=== PATIENT | female | born 1970 | race Caucasian/White ===

== ENCOUNTER 2017-10-31 10:40 | Outpatient (CLI) | payer OTHER | END 2017-10-31 10:41 | disposition home or self-care (01) | LOC: BICCT 10:40 | PROVIDERS: ATTEND Specialist | DX: G45.9 Transient cerebral ischemic attack, unspecified (principal) | CPT/HCPCS: 70450 ==

== ENCOUNTER 2020-02-20 06:35 | Emergency (ER) | payer OTHER | END 2020-02-20 07:11 | disposition left against medical advice (07) | LOC: ERS 06:35 | DX: Z53.21 Procedure and treatment not carried out due to patient leaving prior to being seen by health care provider (principal) ==

== ENCOUNTER 2020-02-23 22:24 | Emergency (ER) | payer BC, OTHER ==
--- NOTE | 2020-02-23 23:15 | RAD ---
XR Chest 1 View Portable HISTORY: Chest pain COMPARISON: 03/17/2014 FINDINGS: The heart size is normal. The lungs are well expanded without focal areas of consolidation, pneumothorax or pleural effusions. IMPRESSION: No radiographic evidence of acute cardiopulmonary process.
[2020-02-23 23:29] LABS: #Basophils 0.1 thou/uL (0.0-0.2); #Eosinphils 0.5 thou/uL (0.0-0.7); #Lymphocytes 4.1 thou/uL (1.20-3.40); #Monocytes 1.2 thou/uL (0.11-0.59); #Neutrophils 12.4 thou/uL (1.40-6.50); %Basophils 0.8 % (0.0-1.0); %Eosinophils 2.6 % (0.0-10.0); %Lymphocytes 22.3 % (21.0-51.0); %Monocytes 6.6 % (0.0-10.0); %Neutrophils 67.7 % (42.0-75.0); Hemoglobin 16.2 g/dL (12.0-16.0); Mean Corpuscular Hemoglobin 32.2 pg (27.0-31.0); Mean Corpuscular Volume 94.7 fL (78.0-98.0); Mean Platelet Volume 9.6 fL (7.4-10.4); Platelet Count 227 thou/uL (130-400); RBC Distribution Width 11.3 % (11.5-14.5); Red Blood Cell (RBC) Count 5.05 mill/uL (4.20-5.40); White Blood Cell (WBC) Count 18.3 thou/uL (4.8-10.8)
[2020-02-23 23:35] LABS: BHCG - Serum Negative (NEGATIVE); Pregs Control Background? CLEAR/WHITE (CLR/WHITE); Pregs Control Bar Appear? YES (CONTROL BAR)
[2020-02-23 23:49] LABS: ALT (SGPT) 35 U/L (8-55); AST (SGOT) 18 U/L (5-34); Albumin 4.1 g/dL (3.5-5.0); Alkaline Phosphatase 98 U/L (40-110); Anion Gap 17 mmol/L (10-20); BUN (Urea Nitrogen) 12 mg/dL (7.0-18.7); Bilirubin, Total 0.2 mg/dL (0.2-1.2); CK (CPK) 57 U/L (29-168); Calc. Creatinine Clearance 0 mL/min (70-130); Carbon Dioxide 23 mmol/L (22-29); Chloride 104 mmol/L (98-107); Estimated GFR-MDRD 62; Glucose 112 mg/dL (70-105); Protein, Total 7.1 g/dL (6.0-8.3); Sodium 140 mmol/L (136-145)
[2020-02-24] LABS: Thyroid Stimulating Hormone 1.3663 uIU/mL (0.35-4.94)
[2020-02-24] MEDS ORDERED: hydrOXYzine 25 MG TAB ONE (00:10)
[2020-02-24] MEDS ORDERED: Metoprolol Tartrate 25 MG TAB ONE (00:10)
== END 2020-02-24 00:16 | disposition home or self-care (01) ==
LOC: ERS 22:24
DX: R07.89 Other chest pain (principal); R00.0 Tachycardia, unspecified
CPT/HCPCS: 71045; 80053; 82550; 83880; 84443; 84484; 84703; 85025; 93005

== ENCOUNTER 2021-11-19 00:57 | Emergency (ER) | payer BC, SELFPAY | END 2021-11-19 01:50 | disposition left against medical advice (07) | LOC: ERS 00:57 | DX: Z53.21 Procedure and treatment not carried out due to patient leaving prior to being seen by health care provider (principal) | CPT/HCPCS: 93005 ==

== ENCOUNTER 2021-12-04 09:36 | Observation (INO) | payer SELFPAY ==
[2021-12-04 10:02] LABS: #Basophils 0.1 thou/uL (0.0-0.2); #Eosinphils 0.5 thou/uL (0.0-0.7); #Lymphocytes 3.1 thou/uL (1.20-3.40); #Monocytes 0.7 thou/uL (0.11-0.59); #Neutrophils 6.1 thou/uL (1.40-6.50); %Basophils 0.9 % (0.0-1.0); %Eosinophils 4.4 % (0.0-10.0); %Lymphocytes 29.4 % (21.0-51.0); %Monocytes 6.9 % (0.0-10.0); %Neutrophils 58.3 % (42.0-75.0); Hemoglobin 15.9 g/dL (12.0-16.0); Mean Corpuscular HGB CONC 31.7 g/dL (32.0-36.0); Mean Corpuscular Hemoglobin 31.1 pg (27.0-31.0); Mean Corpuscular Volume 98.2 fL (78.0-98.0); Mean Platelet Volume 9.5 fL (7.4-10.4); Platelet Count 192 thou/uL (130-400); RBC Distribution Width 11.4 % (11.5-14.5); Red Blood Cell (RBC) Count 5.12 mill/uL (4.20-5.40); White Blood Cell (WBC) Count 10.5 thou/uL (4.8-10.8)
[2021-12-04 10:31] LABS: ALT (SGPT) 50 U/L (8-55); AST (SGOT) 27 U/L (5-34); Albumin 4.2 g/dL (3.5-5.0); Alkaline Phosphatase 72 U/L (40-110); Anion Gap 11 mmol/L (10-20); BUN (Urea Nitrogen) 10 mg/dL (9.8-20.1); Bilirubin, Total 0.4 mg/dL (0.2-1.2); Calc. Creatinine Clearance 0 mL/min (70-130); Calcium 9.6 mg/dL (7.8-10.44); Carbon Dioxide 29 mmol/L (22-29); Chloride 107 mmol/L (98-107); Estimated GFR 103; Globulin 2.8 g/dL (2.4-3.5); Glucose 94 mg/dL (70-105); Lipase 15 U/L (8-78); Potassium 4.5 mmol/L (3.5-5.1); Sodium 142 mmol/L (136-145)
[2021-12-04 12:27] LABS: Bilirubin Negative (Negative); Blood, Urine Negative (Negative); Clarity Clear (Clear); Glucose, Urine (Dipstick) Normal (Negative); Ketone, Urine Negative (Negative); Leukocyte Negative Leu/uL (Negative); Nitrite Negative (Negative); Protein, Urine (Dipstick) Negative (Neg-Trace); Specific Gravity, Urine 1.014 (1.002-1.036); Urobilinogen Normal mg/dL (Less than 2)
[2021-12-04 14:08] LABS: Troponin I Less than 0.010 ng/mL (< 0.028)
[2021-12-04 14:40] VITALS: BMI 45.9
[2021-12-04] MEDS ORDERED: Aspirin 325 MG TAB PO SCH (16:15)
[2021-12-04 17:44] LABS: Troponin I Less than 0.010 ng/mL (< 0.028)
[2021-12-04] MEDS ORDERED: Ondansetron PF 4 MG/2 ML Vial IVP PRN (18:53)
[2021-12-04] MEDS ORDERED: Acetaminophen 325 MG TAB PO PRN (18:53)
[2021-12-04] MEDS ORDERED: Bismuth SubsALICYLATE 30 ML(17.5 mg/mL) Susp PO PRN (18:54)
[2021-12-04] MEDS: ALPRAZolam 0.5 MG TAB PO SCH (21:08)
[2021-12-05 04:47] LABS: Hemoglobin A1c 5.6 % (4.0-6.0)
[2021-12-05 05:00] LABS: Anion Gap 10 mmol/L (10-20); BUN (Urea Nitrogen) 13 mg/dL (9.8-20.1); Calc. Creatinine Clearance 180 mL/min (70-130); Carbon Dioxide 26 mmol/L (22-29); Cardiac Risk 4.7 (Less than 4.5); Chloride 108 mmol/L (98-107); Cholesterol 207 mg/dl (< 200 Desired); Estimated GFR 100; Glucose 95 mg/dL (70-105); HDL Cholesterol 44 mg/dL (>60 Neg Risk); LDL Cholesterol, Calculated 129 mg/dL; Potassium 4.2 mmol/L (3.5-5.1); Sodium 140 mmol/L (136-145); Triglycerides 171 mg/dL (Less than 150)
[2021-12-05 08:49] VITALS: BP 107/57; TEMP 97.9
[2021-12-05] MEDS ORDERED: Fluconazole 100 MG TAB PO SCH (09:00)
[2021-12-05] MEDS ORDERED: Nicotine 21 MG PATCH TOP SCH (09:00)
[2021-12-05] MEDS ORDERED: Sucralfate 1 GM TAB PO SCH (09:00)
[2021-12-05] MEDS ORDERED: Aspirin 325 MG TAB PO SCH (09:00)
[2021-12-05] MEDS: ALPRAZolam 0.5 MG TAB PO SCH (09:35)
[2021-12-05] MEDS ORDERED: Iopamidol 370 76% 100 ML VIAL ONE (10:00)
== END 2021-12-05 10:44 | disposition home or self-care (01) ==
LOC: ERS 09:36 → 2SW 14:22
PROVIDERS: ADMIT Specialist; ATTEND Specialist
DX: R07.89 Other chest pain (principal); J44.9 Chronic obstructive pulmonary disease, unspecified; E78.5 Hyperlipidemia, unspecified; F17.290 Nicotine dependence, other tobacco product, uncomplicated; K76.0 Fatty (change of) liver, not elsewhere classified; I49.8 Other specified cardiac arrhythmias; E66.9 Obesity, unspecified; Z68.42 Body mass index [BMI] 45.0-49.9, adult; Z79.82 Long term (current) use of aspirin; Z79.899 Other long term (current) drug therapy; Z88.5 Allergy status to narcotic agent; Z91.19 Patient's noncompliance with other medical treatment and regimen
CPT/HCPCS: 36415; 71045; 74170; 76705; 80048; 80053; 80061; 81003; 83036; 83690; 84443; 84484; 85025; 93005; G0378; Q9967

== ENCOUNTER 2021-12-17 23:29 | Emergency (ER) | payer SELFPAY ==
[2021-12-17] MEDS ORDERED: Ondansetron ODT 8 MG TAB ONE (23:52)
[2021-12-18 00:19] LABS: #Basophils 0.1 thou/uL (0.0-0.2); #Eosinphils 0.3 thou/uL (0.0-0.7); #Lymphocytes 3.3 thou/uL (1.20-3.40); #Monocytes 0.7 thou/uL (0.11-0.59); %Basophils 0.8 % (0.0-1.0); %Eosinophils 3.3 % (0.0-10.0); %Lymphocytes 31.7 % (21.0-51.0); %Monocytes 6.7 % (0.0-10.0); %Neutrophils 57.6 % (42.0-75.0); Hemoglobin 16.3 g/dL (12.0-16.0); Mean Corpuscular HGB CONC 33.7 g/dL (32.0-36.0); Mean Corpuscular Hemoglobin 33.3 pg (27.0-31.0); Mean Corpuscular Volume 98.7 fL (78.0-98.0); Mean Platelet Volume 9.8 fL (7.4-10.4); Platelet Count 193 thou/uL (130-400); RBC Distribution Width 11.2 % (11.5-14.5); Red Blood Cell (RBC) Count 4.91 mill/uL (4.20-5.40); White Blood Cell (WBC) Count 10.4 thou/uL (4.8-10.8)
[2021-12-18] MEDS ORDERED: Mag-Al 1200 mg/1200 mg/30 ML UDCUP ONE (00:45)
[2021-12-18] MEDS ORDERED: Lidocaine Viscous Sol 2% 15 ml UD Cup ONE (00:45)
[2021-12-18 00:49] LABS: ALT (SGPT) 52 U/L (8-55); AST (SGOT) 36 U/L (5-34); Albumin 4.1 g/dL (3.5-5.0); Alkaline Phosphatase 57 U/L (40-110); Anion Gap 15 mmol/L (10-20); BUN (Urea Nitrogen) 11 mg/dL (9.8-20.1); Bilirubin, Total 0.6 mg/dL (0.2-1.2); Calc. Creatinine Clearance 0 mL/min (70-130); Calcium 10.2 mg/dL (7.8-10.44); Carbon Dioxide 27 mmol/L (22-29); Chloride 103 mmol/L (98-107); Estimated GFR 93; Globulin 2.9 g/dL (2.4-3.5); Glucose 97 mg/dL (70-105); Sodium 141 mmol/L (136-145)
[2021-12-18] MEDS ORDERED: Acetaminophen 500 MG TAB ONE (00:56)
[2021-12-18] MEDS ORDERED: Famotidine 20 MG TAB ONE (00:57)
[2021-12-18] MEDS ORDERED: Famotidine/PF 20 mg/2ml Vial ONE (00:57)
[2021-12-18 03:14] LABS: Troponin I Less than 0.010 ng/mL (< 0.028)
== END 2021-12-18 04:09 | disposition home or self-care (01) ==
LOC: ERS 23:29
DX: R07.9 Chest pain, unspecified (principal); Z79.899 Other long term (current) drug therapy; F17.210 Nicotine dependence, cigarettes, uncomplicated; G62.9 Polyneuropathy, unspecified
CPT/HCPCS: 36415; 71045; 80053; 84484; 85025; 93005; Q0162; S0028

== ENCOUNTER 2021-12-25 00:33 | Emergency (ER) | payer SELFPAY | END 2021-12-25 03:06 | disposition left against medical advice (07) | LOC: ERS 00:33 | DX: Z53.21 Procedure and treatment not carried out due to patient leaving prior to being seen by health care provider (principal) | CPT/HCPCS: 93005 ==

== ENCOUNTER 2021-12-27 00:59 | Emergency (ER) | payer SELFPAY ==
[2021-12-27 01:38] LABS: #Basophils 0.2 thou/uL (0.0-0.2); #Eosinphils 0.5 thou/uL (0.0-0.7); #Lymphocytes 4.2 thou/uL (1.20-3.40); #Monocytes 0.9 thou/uL (0.11-0.59); #Neutrophils 5.8 thou/uL (1.40-6.50); %Basophils 1.3 % (0.0-1.0); %Eosinophils 4.2 % (0.0-10.0); %Lymphocytes 36.5 % (21.0-51.0); %Monocytes 7.5 % (0.0-10.0); %Neutrophils 50.4 % (42.0-75.0); Mean Corpuscular HGB CONC 34.3 g/dL (32.0-36.0); Mean Corpuscular Hemoglobin 33.2 pg (27.0-31.0); Mean Corpuscular Volume 96.9 fL (78.0-98.0); Mean Platelet Volume 10.1 fL (7.4-10.4); Platelet Count 191 thou/uL (130-400); RBC Distribution Width 11.3 % (11.5-14.5); Red Blood Cell (RBC) Count 4.82 mill/uL (4.20-5.40); White Blood Cell (WBC) Count 11.4 thou/uL (4.8-10.8)
[2021-12-27 01:47] LABS: Bilirubin Negative (Negative); Blood, Urine Negative (Negative); Clarity Clear (Clear); Glucose, Urine (Dipstick) Normal (Negative); Ketone, Urine Negative (Negative); Leukocyte Negative Leu/uL (Negative); Nitrite Negative (Negative); Protein, Urine (Dipstick) Negative (Neg-Trace); Specific Gravity, Urine 1.005 (1.002-1.036); Urobilinogen Normal mg/dL (Less than 2)
[2021-12-27 02:03] LABS: ALT (SGPT) 59 U/L (8-55); AST (SGOT) 30 U/L (5-34); Albumin 4.3 g/dL (3.5-5.0); Alkaline Phosphatase 62 U/L (40-110); Anion Gap 13 mmol/L (10-20); BUN (Urea Nitrogen) 12 mg/dL (9.8-20.1); Bilirubin, Total 0.5 mg/dL (0.2-1.2); Calc. Creatinine Clearance 0 mL/min (70-130); Calcium 10.4 mg/dL (7.8-10.44); Carbon Dioxide 28 mmol/L (22-29); Chloride 103 mmol/L (98-107); Estimated GFR 81; Globulin 2.9 g/dL (2.4-3.5); Glucose 92 mg/dL (70-105); Potassium 3.7 mmol/L (3.5-5.1); Protein, Total 7.2 g/dL (6.0-8.3); Sodium 140 mmol/L (136-145)
[2021-12-27] MEDS ORDERED: Dicyclomine 20 MG/2 ML VIAL ONE (02:10)
[2021-12-27] MEDS ORDERED: Ondansetron PF 4 MG/2 ML Vial ONE (02:10)
[2021-12-27] MEDS ORDERED: Ondansetron ODT 4 MG TAB ONE (03:27)
== END 2021-12-27 05:52 | disposition home or self-care (01) ==
LOC: ERS 00:59
DX: K82.8 Other specified diseases of gallbladder (principal); F17.210 Nicotine dependence, cigarettes, uncomplicated; Z79.899 Other long term (current) drug therapy
CPT/HCPCS: 36415; 71045; 76705; 81003; 83690; 84484; 93005; 96372; J2405; Q0162

== ENCOUNTER 2021-12-27 22:45 | Emergency (ER) | payer SELFPAY ==
[2021-12-28] MEDS ORDERED: Lorazepam 1 MG TAB ONE ×2 (04:12→04:16)
[2021-12-28 06:14] LABS: Bilirubin Negative (Negative); Blood, Urine Negative (Negative); Clarity Clear (Clear); Glucose, Urine (Dipstick) Normal (Negative); Ketone, Urine Negative (Negative); Leukocyte Negative Leu/uL (Negative); Nitrite Negative (Negative); Protein, Urine (Dipstick) Negative (Neg-Trace); Specific Gravity, Urine 1.018 (1.002-1.036); Urobilinogen Normal mg/dL (Less than 2)
[2021-12-28 06:19] LABS: ALT (SGPT) 56 U/L (8-55); AST (SGOT) 31 U/L (5-34); Albumin 4.3 g/dL (3.5-5.0); Alkaline Phosphatase 58 U/L (40-110); Anion Gap 14 mmol/L (10-20); BUN (Urea Nitrogen) 8 mg/dL (9.8-20.1); Bilirubin, Total 0.7 mg/dL (0.2-1.2); Calc. Creatinine Clearance 0 mL/min (70-130); Calcium 9.7 mg/dL (7.8-10.44); Carbon Dioxide 26 mmol/L (22-29); Chloride 105 mmol/L (98-107); Estimated GFR 91; Globulin 2.9 g/dL (2.4-3.5); Glucose 89 mg/dL (70-105); Potassium 3.6 mmol/L (3.5-5.1); Protein, Total 7.2 g/dL (6.0-8.3); Sodium 141 mmol/L (136-145)
[2021-12-28 06:34] LABS: #Eosinphils 0.5 thou/uL (0.0-0.7); #Lymphocytes 4.3 thou/uL (1.20-3.40); #Monocytes 0.8 thou/uL (0.11-0.59); %Basophils 0.3 % (0.0-1.0); %Eosinophils 4.2 % (0.0-10.0); %Lymphocytes 33.8 % (21.0-51.0); %Monocytes 6.2 % (0.0-10.0); %Neutrophils 55.6 % (42.0-75.0); Hemoglobin 15.9 g/dL (12.0-16.0); Mean Corpuscular HGB CONC 32.8 g/dL (32.0-36.0); Mean Corpuscular Hemoglobin 31.8 pg (27.0-31.0); Mean Corpuscular Volume 96.9 fL (78.0-98.0); Mean Platelet Volume 10.5 fL (7.4-10.4); Platelet Count 189 thou/uL (130-400); RBC Distribution Width 11.4 % (11.5-14.5); White Blood Cell (WBC) Count 12.7 thou/uL (4.8-10.8)
== END 2021-12-28 08:27 | disposition home or self-care (01) ==
LOC: ERS 22:45
DX: R42 Dizziness and giddiness (principal); R55 Syncope and collapse; F17.210 Nicotine dependence, cigarettes, uncomplicated; Z79.899 Other long term (current) drug therapy
CPT/HCPCS: 81003; 93005

== ENCOUNTER 2023-05-14 12:00 | Inpatient (IN) | payer SELFPAY ==
[2023-05-14 12:25] LABS: Hematocrit 50.9 % (36.0-47.0); Hemoglobin 17.5 g/dL (12.0-16.0); Manual Diff?? YES; Mean Corpuscular HGB CONC 34.4 g/dL (32.0-36.0); Mean Corpuscular Hemoglobin 30.8 pg (27.0-31.0); Mean Corpuscular Volume 89.6 fl (78.0-98.0); Mean Platelet Volume 12.5 fL (7.4-10.4); Platelet Count 121 10x3/uL (130-400); RBC Distribution Width 11.9 % (11.5-14.5); Red Blood Cell (RBC) Count 5.68 mill/uL (4.20-5.40); White Blood Cell (WBC) Count 12.7 10x3/uL (4.8-10.8)
[2023-05-14 12:27] LABS: Delete Auto Diff?? YES
[2023-05-14] MEDS ORDERED: Sodium Chloride 0.9% 100 ML ONE (12:56)
[2023-05-14] MEDS ORDERED: Azithromycin 500 MG VIAL ONE (12:56)
[2023-05-14] MEDS ORDERED: cefTRIAXone (ROCEPHIN) 1 GM VIAL ONE (12:56)
[2023-05-14 12:57] LABS: ALT (SGPT) 34 U/L (8-55); AST (SGOT) 35 U/L (5-34); Albumin 3.7 g/dL (3.5-5.0); Alkaline Phosphatase 53 U/L (40-110); Anion Gap 16 mmol/L (10-20); BUN (Urea Nitrogen) 13 mg/dL (9.8-20.1); Bilirubin, Total 0.7 mg/dL (0.2-1.2); Calc. Creatinine Clearance 0 mL/min (70-130); Calcium 9.4 mg/dL (7.8-10.44); Carbon Dioxide 25 mmol/L (22-29); Chloride 98 mmol/L (98-107); Estimated GFR 91; Globulin 4.1 g/dL (2.4-3.5); Glucose 118 mg/dL (70-105); Potassium 3.6 mmol/L (3.5-5.1); Protein, Total 7.8 g/dL (6.0-8.3); Sodium 135 mmol/L (136-145)
[2023-05-14 12:58] LABS: Band 9 % (5-11); CellaVision Operator ID LAB.KB; Lymphocytes 7 % (21-51); Monocytes 3 % (0-10); Neutrophil 76 % (42-75); Platelet Adequacy Comment Platelets Decreased; RBC Morphology Within Normal Limits; Reactive Lymphocytes 5 % (0-10); Total Cell Count 101
[2023-05-14 13:37] LABS: Troponin I Less than 0.010 ng/mL (< 0.028)
[2023-05-14 13:53] LABS: INR-International Normal Ratio 1.1; PTT 31.5 sec (22.9-36.1); Prothrombin Time 14.9 sec (12.0-14.7)
[2023-05-14 14:05] LABS: SARS-CoV-2 NAA Rapid Test Not Detected (NotDetected)
[2023-05-14] MEDS ORDERED: Bisacodyl 5 MG TAB PO PRN (14:39)
[2023-05-14] MEDS ORDERED: Bisacodyl 10 MG SUPP PR PRN (14:39)
[2023-05-14] MEDS ORDERED: Acetaminophen 325 MG TAB PO PRN (14:39)
[2023-05-14] MEDS ORDERED: Senokot S 8.6-50 MG TAB PO PRN (14:39)
[2023-05-14] MEDS ORDERED: HumaLOG 300 UNITS/3 ML VIAL SC PRN ×2 (14:42)
[2023-05-14] MEDS ORDERED: Dextrose 50% Abboject 50 ML SYRINGE SLOW IVP PRN (14:42)
[2023-05-14] MEDS ORDERED: Glucagon 1 MG/ML KIT IM PRN (14:42)
[2023-05-14] MEDS ORDERED: Dextrose 5% in Water 1,000 ML IV PRN (14:42)
[2023-05-14] MEDS ORDERED: Dexamethasone 10 MG/ML VIAL ONE (15:12)
[2023-05-14] MEDS ORDERED: FLU VACC QS2023-24(6MOS UP)/PF 60 MCG/0.5 ML SYRINGE IM ONE (16:15)
[2023-05-14] MEDS ORDERED: Ipratropium/Albuterol 3 ML NEB NEB PRN (20:00)
[2023-05-14] MEDS: Guaifenesin DM 100-10/5 ML UDCUP PO PRN (20:42)
[2023-05-15] MEDS: Guaifenesin DM 100-10/5 ML UDCUP PO PRN ×3 (01:29→16:11)
[2023-05-15 06:04] LABS: #Monocytes 0.4 thou/uL (0.11-0.59); #Neutrophils 8.6 thou/uL (1.40-6.50); %Basophils 0.2 % (0.0-1.0); %Lymphocytes 13.5 % (21.0-51.0); %Monocytes 3.9 % (0.0-10.0); %Neutrophils 81.3 % (42.0-75.0); Hematocrit 47.6 % (36.0-47.0); Hemoglobin 15.8 g/dL (12.0-16.0); Mean Corpuscular HGB CONC 33.2 g/dL (32.0-36.0); Mean Corpuscular Hemoglobin 31.4 pg (27.0-31.0); Mean Platelet Volume 13.2 fL (7.4-10.4); Platelet Count 136 10x3/uL (130-400); Red Blood Cell (RBC) Count 5.03 mill/uL (4.20-5.40); White Blood Cell (WBC) Count 10.5 10x3/uL (4.8-10.8)
[2023-05-15 06:30] LABS: Mean Corpuscular Volume 94.6 fl (78.0-98.0)
[2023-05-15] MEDS: Azithromycin 250 MG TAB PO SCH (09:33)
[2023-05-15] MEDS: Dexamethasone 4 mg/ml Vial SLOW IVP SCH (09:33)
[2023-05-15] MEDS ORDERED: Lorazepam 1 MG TAB PO PRN (09:38)
[2023-05-15] MEDS ORDERED: cefTRIAXone\\ROCEPHIN 1 GM in Sodium Chloride 0.9% 100 ML IVPB SCH (12:00)
[2023-05-15 12:22] LABS: Chloride 101 mmol/L (98-107); Potassium 3.9 mmol/L (3.5-5.1); Sodium 138 mmol/L (136-145)
[2023-05-15 12:23] LABS: Calcium 9.2 mg/dL (7.8-10.44); Glucose 150 mg/dL (70-105)
[2023-05-15 12:25] LABS: Anion Gap 16 mmol/L (10-20); Carbon Dioxide 25 mmol/L (22-29)
[2023-05-15 12:27] LABS: Calc. Creatinine Clearance 166 mL/min (70-130); Estimated GFR 102
[2023-05-15 12:28] LABS: BUN (Urea Nitrogen) 14 mg/dL (9.8-20.1)
[2023-05-15 12:44] VITALS: BMI 41.9
[2023-05-15] MEDS: Ipratropium/Albuterol 3 ML NEB NEB SCH (18:45)
[2023-05-16] MEDS: Ipratropium/Albuterol 3 ML NEB NEB SCH ×5 (02:00→23:38)
[2023-05-16 06:19] LABS: #Monocytes 0.9 thou/uL (0.11-0.59); #Neutrophils 12.6 thou/uL (1.40-6.50); %Basophils 0.2 % (0.0-1.0); %Lymphocytes 11.6 % (21.0-51.0); %Monocytes 5.9 % (0.0-10.0); %Neutrophils 81.3 % (42.0-75.0); Hematocrit 45.5 % (36.0-47.0); Hemoglobin 15.3 g/dL (12.0-16.0); Mean Corpuscular HGB CONC 33.6 g/dL (32.0-36.0); Mean Corpuscular Hemoglobin 31.4 pg (27.0-31.0); Mean Corpuscular Volume 93.2 fl (78.0-98.0); Mean Platelet Volume 12.9 fL (7.4-10.4); Platelet Count 206 10x3/uL (130-400); RBC Distribution Width 12.1 % (11.5-14.5); Red Blood Cell (RBC) Count 4.88 mill/uL (4.20-5.40); White Blood Cell (WBC) Count 15.5 10x3/uL (4.8-10.8)
[2023-05-16 06:50] LABS: Anion Gap 15 mmol/L (10-20); BUN (Urea Nitrogen) 15 mg/dL (9.8-20.1); Calc. Creatinine Clearance 181 mL/min (70-130); Carbon Dioxide 25 mmol/L (22-29); Chloride 104 mmol/L (98-107); Estimated GFR 105; Glucose 128 mg/dL (70-105); Potassium 3.8 mmol/L (3.5-5.1); Sodium 140 mmol/L (136-145)
[2023-05-16] MEDS: Azithromycin 250 MG TAB PO SCH (08:49)
[2023-05-16] MEDS: Dexamethasone 4 mg/ml Vial SLOW IVP SCH (08:49)
[2023-05-16] MEDS: Bisoprolol Fumarate/HCTZ 10 mg/6.25 mg Tablet PO SCH (08:53)
[2023-05-16] MEDS ORDERED: Cefdinir 300 MG CAP PO SCH (09:30)
[2023-05-16] MEDS: Cefdinir 300 MG CAP PO SCH (20:29)
[2023-05-17] MEDS: Guaifenesin DM 100-10/5 ML UDCUP PO PRN (00:27)
[2023-05-17 07:09] LABS: #Monocytes 0.9 thou/uL (0.11-0.59); #Neutrophils 7.4 thou/uL (1.40-6.50); %Basophils 0.1 % (0.0-1.0); %Eosinophils 0.2 % (0.0-10.0); %Lymphocytes 27.3 % (21.0-51.0); %Neutrophils 63.5 % (42.0-75.0); Hematocrit 45.4 % (36.0-47.0); Hemoglobin 14.8 g/dL (12.0-16.0); Mean Corpuscular HGB CONC 32.6 g/dL (32.0-36.0); Mean Corpuscular Hemoglobin 31.2 pg (27.0-31.0); Mean Corpuscular Volume 95.8 fl (78.0-98.0); Platelet Count 268 10x3/uL (130-400); RBC Distribution Width 12.2 % (11.5-14.5); Red Blood Cell (RBC) Count 4.74 mill/uL (4.20-5.40); White Blood Cell (WBC) Count 11.7 10x3/uL (4.8-10.8)
[2023-05-17 07:37] LABS: Anion Gap 12 mmol/L (10-20); BUN (Urea Nitrogen) 15 mg/dL (9.8-20.1); Calc. Creatinine Clearance 159 mL/min (70-130); Calcium 8.8 mg/dL (7.8-10.44); Carbon Dioxide 29 mmol/L (22-29); Chloride 102 mmol/L (98-107); Estimated GFR 97; Glucose 81 mg/dL (70-105); Potassium 3.5 mmol/L (3.5-5.1); Sodium 139 mmol/L (136-145)
[2023-05-17 07:50] VITALS: TEMP 98.7
[2023-05-17] MEDS: Ipratropium/Albuterol 3 ML NEB NEB SCH (08:24)
[2023-05-17] MEDS ORDERED: predniSONE 20 MG TAB PO SCH (09:15)
[2023-05-17] MEDS: Cefdinir 300 MG CAP PO SCH (09:20)
[2023-05-17] MEDS: Bisoprolol Fumarate/HCTZ 10 mg/6.25 mg Tablet PO SCH (09:20)
[2023-05-17 15:42] VITALS: BP 136/70
== END 2023-05-17 15:11 | disposition home or self-care (01) | DRG 193 ==
LOC: ERS 12:00 → T4-B 15:51 → OBSVTOIN 05-16 15:04
PROVIDERS: ADMIT Hospitalist; ATTEND Hospitalist
DX: J10.00 Influenza due to other identified influenza virus with unspecified type of pneumonia (principal); J96.01 Acute respiratory failure with hypoxia; D75.1 Secondary polycythemia; E11.9 Type 2 diabetes mellitus without complications; I10 Essential (primary) hypertension; F17.210 Nicotine dependence, cigarettes, uncomplicated; Z88.6 Allergy status to analgesic agent; Z79.899 Other long term (current) drug therapy; Z79.82 Long term (current) use of aspirin; Z90.710 Acquired absence of both cervix and uterus; Z83.3 Family history of diabetes mellitus; Z11.52 Encounter for screening for COVID-19
CPT/HCPCS: 36415; 36416; 71045; 80048; 80053; 83605; 83880; 84484; 85025; 85610; 85730; 86140; 87040; 93005; 93306; 93970; 94640; 94760; 96365; 96375; J0456; J0696; J1100; J3490; J7512; J7620

== ENCOUNTER 2023-09-28 21:13 | Inpatient (IN) | payer SELFPAY ==
[2023-09-29 03:00] VITALS: BMI 43.2
[2023-10-03 08:48] VITALS: TEMP 97.8
[2023-10-03 13:11] VITALS: BP 132/84
== END 2023-10-03 13:41 | disposition home or self-care (01) | DRG 189 ==
LOC: ERS 21:13 → T4-A 09-29 00:23 → OBSVTOIN 09-30 15:51
PROVIDERS: ADMIT Internal Medicine; ATTEND Internal Medicine
DX: J96.01 Acute respiratory failure with hypoxia (principal); Z68.41 Body mass index [BMI] 40.0-44.9, adult; E11.9 Type 2 diabetes mellitus without complications; I10 Essential (primary) hypertension; Z79.899 Other long term (current) drug therapy; Z88.8 Allergy status to other drugs, medicaments and biological substances; F41.9 Anxiety disorder, unspecified; J44.9 Chronic obstructive pulmonary disease, unspecified; Z87.891 Personal history of nicotine dependence; G47.30 Sleep apnea, unspecified; Z98.890 Other specified postprocedural states; E66.01 Morbid (severe) obesity due to excess calories; D72.829 Elevated white blood cell count, unspecified; Z79.4 Long term (current) use of insulin
CPT/HCPCS: 36415; 36416; 71045; 80048; 80053; 83605; 83735; 83880; 84145; 84484; 85025; 85379; 85610; 85730; 87040; 87633; 93005; 94640; 94760; 96374; 96375; J0456; J0696; J1644; J1815; J2920; J2930; J3475; J3490; J7050; J7512; J7612; J7620; J7626; Q0162

== ENCOUNTER 2023-11-16 12:32 | Emergency (ER) | payer SELFPAY | END 2023-11-16 15:31 | LOC: ERS 12:32 | DX: Z53.21 Procedure and treatment not carried out due to patient leaving prior to being seen by health care provider (principal) ==

== ENCOUNTER 2024-06-08 20:17 | Inpatient (IN) | payer SELFPAY ==
[2024-06-08 21:37] LABS: #Basophils 0.07 10x3/uL (0.0-0.2); %Basophils 0.9 % (0.0-1.0); %Eosinophils 1.9 % (0.0-10.0); %Lymphocytes 17.8 % (21.0-51.0); %Monocytes 8.5 % (0.0-10.0); %Neutrophils 70.4 % (42.0-75.0); Hematocrit 50.8 % (36.0-47.0); Hemoglobin 16.4 g/dL (12.0-16.0); Mean Corpuscular HGB CONC 32.3 g/dL (32.0-36.0); Mean Corpuscular Hemoglobin 30.7 pg (27.0-31.0); Mean Platelet Volume 11.3 fL (7.4-10.4); Platelet Count 174 10x3/uL (130-400); RBC Distribution Width 12.1 % (11.5-14.5); Red Blood Cell (RBC) Count 5.35 mill/uL (4.20-5.40)
[2024-06-08 21:49] LABS: ALT (SGPT) 22 U/L (8-55); AST (SGOT) 19 U/L (5-34); Alkaline Phosphatase 67 U/L (40-110); Anion Gap 16 mmol/L (10-20); BUN (Urea Nitrogen) 12 mg/dL (9.8-20.1); Bilirubin, Total 0.4 mg/dL (0.2-1.2); Calcium 9.6 mg/dL (7.8-10.44); Carbon Dioxide 23 mmol/L (22-29); Chloride 105 mmol/L (98-107); Globulin 3.6 g/dL (2.4-3.5); Glucose 112 mg/dL (70-105); Protein, Total 7.6 g/dL (6.0-8.3); Sodium 139 mmol/L (136-145)
[2024-06-08 21:54] LABS: Troponin I Less than 0.010 ng/mL (< 0.028)
[2024-06-08] MEDS ORDERED: Ipratropium/Albuterol 3 ML NEB ONE (22:44)
[2024-06-08] MEDS ORDERED: Albuterol 1.25 MG (3 mL) NEB ONE (22:45)
[2024-06-08] MEDS ORDERED: LevoFLOXacin 250 MG TAB ONE (22:47)
[2024-06-08 23:03] LABS: Calc. Creatinine Clearance 0 mL/min (70-130); Estimated GFR 81
[2024-06-09] MEDS ORDERED: Acetaminophen 500 MG TAB ONE (00:47)
[2024-06-09] MEDS ORDERED: Ondansetron ODT 4 MG TAB ONE (00:48)
[2024-06-09] MEDS ORDERED: methylPREDNISolone Sod Succ/PF 125 MG/2 ML VIAL ONE (01:43)
[2024-06-09 03:28] VITALS: BMI 44.3
[2024-06-09] MEDS ORDERED: Insulin Lispro 100 UNIT/ML 10 ML VIAL SC PRN ×2 (05:19)
[2024-06-09] MEDS ORDERED: Dextrose 50% Abboject 50 ML SYRINGE SLOW IVP PRN (05:19)
[2024-06-09] MEDS ORDERED: Glucagon 1 MG/ML KIT IM PRN (05:19)
[2024-06-09] MEDS ORDERED: Dextrose 5% in Water 1,000 ML IV PRN (05:19)
[2024-06-09 05:47] LABS: #Basophils 0.05 10x3/uL (0.0-0.2); #Eosinophils Less than 0.03 10x3/uL (0.0-0.7); %Basophils 0.6 % (0.0-1.0); %Eosinophils 0.1 % (0.0-10.0); %Lymphocytes 13.6 % (21.0-51.0); %Monocytes 2.5 % (0.0-10.0); %Neutrophils 82.6 % (42.0-75.0); Hematocrit 49.3 % (36.0-47.0); Hemoglobin 16.2 g/dL (12.0-16.0); Mean Corpuscular HGB CONC 32.9 g/dL (32.0-36.0); Mean Corpuscular Hemoglobin 30.9 pg (27.0-31.0); Mean Corpuscular Volume 93.9 fL (78.0-98.0); Mean Platelet Volume 11.7 fL (7.4-10.4); Platelet Count 168 10x3/uL (130-400); RBC Distribution Width 12.1 % (11.5-14.5); Red Blood Cell (RBC) Count 5.25 mill/uL (4.20-5.40)
[2024-06-09 06:13] LABS: Anion Gap 13 mmol/L (10-20); BUN (Urea Nitrogen) 13 mg/dL (9.8-20.1); Calc. Creatinine Clearance 148 mL/min (70-130); Calcium 9.9 mg/dL (7.8-10.44); Carbon Dioxide 23 mmol/L (22-29); Chloride 105 mmol/L (98-107); Estimated GFR 84; Glucose 147 mg/dL (70-105); Potassium 4.5 mmol/L (3.5-5.1); Sodium 136 mmol/L (136-145)
[2024-06-09] MEDS: Benzonatate 100 MG CAP PO PRN (06:29)
[2024-06-09] MEDS: Ipratropium/Albuterol 3 ML NEB NEB SCH (07:17)
[2024-06-09] MEDS: Enoxaparin 40 MG (0.4 mL) SYRINGE SC SCH (08:41)
[2024-06-09] MEDS: Sodium Chloride 0.65% Nasal 44 ML BOT EA NARE PRN (08:41)
[2024-06-09] MEDS: methylPREDNISolone Sod Succ 40 MG VIAL IVP SCH (08:42)
[2024-06-09] MEDS: guaiFENesin/DM ER PO SCH (08:48)
[2024-06-09] MEDS: Acetaminophen 325 MG TAB PO PRN (10:54)
[2024-06-09] MEDS: guaiFENesin/Codeine 200 mg/20 mg 10 ml Cup PO PRN (11:31)
[2024-06-09] MEDS: Bisoprolol Fumarate/HCTZ 10 mg/6.25 mg Tablet PO SCH (11:32)
[2024-06-09] MEDS: Ketorolac Tromethamine 30 MG (1 mL) VIAL ONE (13:09)
[2024-06-09] MEDS: Ketorolac Tromethamine 30 MG (1 mL) VIAL IVP SCH (17:24)
[2024-06-09] MEDS ORDERED: Ketorolac Tromethamine 30 MG (1 mL) VIAL IVP SCH (18:00)
[2024-06-09] MEDS: Ondansetron PF 4 MG/2 ML Vial IVP PRN (18:16)
[2024-06-09] MEDS: LevoFLOXacin 500 MG TAB PO SCH (21:45)
[2024-06-09] MEDS ORDERED: Ipratropium/Albuterol 3 ML NEB ONE (22:14)
[2024-06-10] MEDS: Ketorolac Tromethamine 30 MG (1 mL) VIAL IVP SCH (00:41)
[2024-06-10 06:30] LABS: #Basophils 0.03 10x3/uL (0.0-0.2); %Basophils 0.2 % (0.0-1.0); %Eosinophils 0.5 % (0.0-10.0); %Monocytes 7.6 % (0.0-10.0); %Neutrophils 80.1 % (42.0-75.0); Hematocrit 47.3 % (36.0-47.0); Hemoglobin 15.7 g/dL (12.0-16.0); Mean Corpuscular HGB CONC 33.2 g/dL (32.0-36.0); Mean Corpuscular Hemoglobin 30.8 pg (27.0-31.0); Mean Corpuscular Volume 92.9 fL (78.0-98.0); Mean Platelet Volume 12.4 fL (7.4-10.4); Platelet Count 173 10x3/uL (130-400); RBC Distribution Width 12.3 % (11.5-14.5); Red Blood Cell (RBC) Count 5.09 mill/uL (4.20-5.40)
[2024-06-10 06:45] LABS: Anion Gap 13 mmol/L (10-20); BUN (Urea Nitrogen) 23 mg/dL (9.8-20.1); Calc. Creatinine Clearance 163 mL/min (70-130); Calcium 9.1 mg/dL (7.8-10.44); Carbon Dioxide 24 mmol/L (22-29); Chloride 104 mmol/L (98-107); Estimated GFR 95; Glucose 141 mg/dL (70-105); Potassium 4.3 mmol/L (3.5-5.1); Sodium 137 mmol/L (136-145)
[2024-06-10] MEDS: Bisoprolol Fumarate/HCTZ 10 mg/6.25 mg Tablet PO SCH (08:46)
[2024-06-10] MEDS: SUMAtriptan Succinate 6 MG/0.5 ML VIAL SC SCH (15:07)
[2024-06-11 05:57] LABS: #Basophils Less than 0.03 10x3/uL (0.0-0.2); #Eosinophils Less than 0.03 10x3/uL (0.0-0.7); %Basophils 0.2 % (0.0-1.0); %Lymphocytes 17.2 % (21.0-51.0); %Monocytes 6.6 % (0.0-10.0); %Neutrophils 75.5 % (42.0-75.0); Hematocrit 46.1 % (36.0-47.0); Hemoglobin 15.2 g/dL (12.0-16.0); Mean Corpuscular Volume 93.9 fL (78.0-98.0); Mean Platelet Volume 11.4 fL (7.4-10.4); Platelet Count 174 10x3/uL (130-400); RBC Distribution Width 12.1 % (11.5-14.5); Red Blood Cell (RBC) Count 4.91 mill/uL (4.20-5.40)
[2024-06-11 06:13] LABS: Anion Gap 12 mmol/L (10-20); BUN (Urea Nitrogen) 16 mg/dL (9.8-20.1); Calc. Creatinine Clearance 198 mL/min (70-130); Calcium 9.1 mg/dL (7.8-10.44); Carbon Dioxide 27 mmol/L (22-29); Chloride 102 mmol/L (98-107); Estimated GFR 106; Glucose 140 mg/dL (70-105); Potassium 4.2 mmol/L (3.5-5.1); Sodium 137 mmol/L (136-145)
[2024-06-11] MEDS: guaiFENesin ER 600 MG TAB PO SCH ×2 (12:44→20:22)
[2024-06-11] MEDS: Melatonin 3 MG TAB PO PRN (20:23)
[2024-06-11] MEDS: Fluconazole 100 MG TAB PO SCH (23:57)
[2024-06-12] MEDS: Amlodipine 5 MG TAB PO SCH (09:04)
[2024-06-12] MEDS: cefTRIAXone\\ROCEPHIN 1 GM in Sodium Chloride 0.9% 100 ML IVPB SCH (09:33)
[2024-06-12] MEDS ORDERED: Promethazine HCl 25 MG in Sodium Chloride 0.9% 50 ML IVPB PRN (09:40)
[2024-06-12] MEDS: Azithromycin 500 MG in Sodium Chloride 0.9% 250 ML 250 ML IVPB SCH (10:39)
[2024-06-12] MEDS: Azithromycin 250 MG TAB PO SCH (12:38)
[2024-06-12 17:34] VITALS: BP 138/66; TEMP 98.1
[2024-06-13] MEDS ORDERED: Azithromycin 250 MG TAB PO SCH (12:00)
== END 2024-06-12 17:20 | disposition home or self-care (01) | DRG 190 ==
LOC: ERS 20:17 → T4-B 06-09 01:52 → OBSVTOIN 06-10 14:13
PROVIDERS: ADMIT Internal Medicine; ATTEND Internal Medicine
DX: J44.1 Chronic obstructive pulmonary disease with (acute) exacerbation (principal); J96.01 Acute respiratory failure with hypoxia; E11.9 Type 2 diabetes mellitus without complications; I10 Essential (primary) hypertension; Z79.899 Other long term (current) drug therapy; Z87.891 Personal history of nicotine dependence
CPT/HCPCS: 36415; 36416; 71045; 80048; 80053; 83880; 84484; 85025; 87428; 93005; 94640; 96372; 96374; 96375; 96376; G0378; J0456; J0696; J1650; J1815; J1885; J2405; J2919; J3030; J7050; J7620; Q0162